=== PATIENT | female | born 2000 | race Caucasian/White ===

== ENCOUNTER 2019-05-08 07:58 | Emergency (ER) | payer OTHER ==
[~2019-05-08] VITALS: Ht 154.9 cm; Wt 47.6 kg
[2019-05-08] MEDS ORDERED: IBUPROFEN800 MG PO (08:06)
[2019-05-08] MEDS ORDERED: NORCO 5-325 TA1 EACH PO (08:06)
[2019-05-08] MEDS ORDERED: SPRINTEC1 EACH PO (08:06)
[2019-05-08] MEDS ORDERED: PROMETHAZINE HC25 M1 PO (09:24)
[2019-05-08] MEDS ORDERED: ONDANSETRON ODT8 MG PO (09:24)
[2019-05-08] MEDS ORDERED: KEFLEX500 MG PO (10:18)
== END 2019-05-08 10:31 | disposition home or self-care (01) ==
LOC: ED 07:58
DX: K29.00 Acute gastritis without bleeding (principal); N39.0 Urinary tract infection, site not specified; Z79.899 Other long term (current) drug therapy; Z79.891 Long term (current) use of opiate analgesic
CPT/HCPCS: 81001; 84703; 99284; A9270

== ENCOUNTER 2020-06-09 09:39 | Emergency (ER) | payer OTHER ==
[~2020-06-09] VITALS: Ht 154.9 cm; Wt 49.9 kg
[~2020-06-09 09:39] MED LIST: IBUPROFEN800 MG PO; KEFLEX500 MG PO; NORCO 5-325 TA1 EACH PO; ONDANSETRON ODT8 MG PO; PROMETHAZINE HC25 M1 PO; SPRINTEC1 EACH PO
[2020-06-09] MEDS ORDERED: ASHLYNA 0.15-01 EACH PO (09:54)
== END 2020-06-09 10:29 | disposition home or self-care (01) ==
LOC: ED 09:39
DX: S91.041A Puncture wound with foreign body, right ankle, initial encounter (principal); W22.8XXA Striking against or struck by other objects, initial encounter; J45.909 Unspecified asthma, uncomplicated; Z87.891 Personal history of nicotine dependence; Z79.899 Other long term (current) drug therapy
CPT/HCPCS: 64450; 90471; 90715; 99283-25

== ENCOUNTER 2022-01-29 15:00 | Emergency (ER) | payer OTHER ==
[~2022-01-29] VITALS: Ht 154.9 cm; Wt 57.6 kg
[~2022-01-29 15:00] MED LIST changes: +ASHLYNA 0.15-01 EACH PO
[2022-01-29] MEDS ORDERED: PENICILLIN V P500 MG PO (17:58)
== END 2022-01-29 18:03 | disposition home or self-care (01) ==
LOC: ED 15:00
DX: K08.89 Other specified disorders of teeth and supporting structures (principal); J45.909 Unspecified asthma, uncomplicated; Z87.891 Personal history of nicotine dependence
CPT/HCPCS: 99282

== ENCOUNTER 2022-11-15 02:17 | Inpatient (IN) | payer OTHER ==
[~2022-11-15] VITALS: Ht 157.5 cm; Wt 73.9 kg
[~2022-11-15 02:17] MED LIST changes: +PENICILLIN V P500 MG PO
[2022-11-15 04:29] VITALS: BP 131/80
--- NOTE | 2022-11-15 04:52 | PR ---
[facility] [address] [place], [place] [address] Signed Progress Notes IP Datetime Report Generated by CPN: 11/15/2022 04:52 PROGRESS NOTES: [id number] Impression: Normal Progression of Labor; Reassuring Heart Rate Procedures: Artificial ROM; Sterile Vag Exam Plan: Continue Present Management; Anticipate Vaginal Delivery Informed Consent Obtain: Vaginal Delivery VITAL SIGNS: [id number] Vital Signs: Reviewed; Within Normal Limits EXAM: [id number] Dilatation: 7.0 Effacement: 95 Station: -2 Contractions: q2-3 min MEMBRANES: [id number] Amniotic Fluid Color: Clear Comments: Pt seen and examined. Doing well. Comfortable w/ epidural. Large bulging bag of back noted and AROM performed w/out difficulty for large amount of clear amniotic fluid. Pt and baby tolerated well. Pt now complete. Will prepare for delivery FETUS A: [id number] FHR Baseline: 120 Variability: Moderate 6-25bpm Accelerations: 15X15 Decelerations: None FHR Category: Category I Presentation: Vertex Comments on Fetus A: No evidence of acidemia FETUS B: [id number] Signing Physician: Juan Hays DO Copies: ~ *Electronically Signed* 11/15/22 045 JUAN HAYS (CITLALI) DO PATIENT NAME: DANIELA BOCANEGRA PROGRESS NOTE DATE OF : 99 PHYSICIAN: JUAN HAYS) DO RPT #: [id number] REPORT IS CONFIDENTIAL AND NOT TO BE RELEASED WITHOUT AUTHORIZATION
--- NOTE | 2022-11-16 09:59 | PR ---
[facility] [address] [place], [place] [address] Signed PP Progress Notes Datetime Report Generated by CPN: 11/16/2022 09:58 SUBJECTIVE: [id number] Pain: Within Normal Limits Nausea/Vomiting: Denies Flatus: Yes Bowel Movement: Yes Vital Signs: [id number] Vital Signs: Reviewed EXAM: Ongoing Cardiovascular: Normal Respiratory: Normal Abdomen/Uterus: Normal Lochia: Normal CVA Tenderness: Normal Extremities: Normal Incision: Not Applicable Progress: Normal Exam Comments: Fundus firm U-2 nontender IMPRESSION/PLAN/PROCEDURES: [id number] Impression: Normal Progression Plan: Discharge Progress Notes: Pt seen and examined. Doing well. Ambulating, voiding and tolerating full diet. Pain and lochia minimal. well. No fevers/chills. Mildly elevated BPs noted . No DRISCOLL, RUQ pain, or visual changes. Desires d/c home. Will return in 2 days for BP check. Reviewed instructions in detail. Discuss s/sx preE and indications for urgent reevaluation. Signing Physician: Juan Barnhart DO Copies: ~ *Electronically Signed* 11/16/22 0958 JUAN BARNHART (CITLALI) DO PATIENT NAME: DANIELA BOCANEGRA PROGRESS NOTE DATE OF : 99 PHYSICIAN: JUAN BARNHART (JD) DO RPT #: [id number] REPORT IS CONFIDENTIAL AND NOT TO BE RELEASED WITHOUT AUTHORIZATION
== END 2022-11-16 12:15 | disposition home or self-care (01) | DRG 807 ==
LOC: FBCO 02:17 → FBC 02:41
PROVIDERS: ADMIT Obstetrics & Gynecology; ATTEND Obstetrics & Gynecology
PROC: 10E0XZZ Delivery of Products of Conception, External Approach (ICD-10-PCS; principal; 2022-11-15)
PROC: 0KQM0ZZ Repair Perineum Muscle, Open Approach (ICD-10-PCS; 2022-11-15)
PROC: 10907ZC Drainage of Amniotic Fluid, Therapeutic from Products of Conception, Via Natural or Artificial Opening (ICD-10-PCS; 2022-11-15)
PROC: 00HU33Z Insertion of Infusion Device into Spinal Canal, Percutaneous Approach (ICD-10-PCS; 2022-11-15)
PROC: 3E0R3BZ Introduction of Anesthetic Agent into Spinal Canal, Percutaneous Approach (ICD-10-PCS; 2022-11-15)
DX: O99.334 Smoking (tobacco) complicating childbirth (principal); Z37.0 Single live birth; Z67.10 Type A blood, Rh positive; O70.1 Second degree perineal laceration during delivery; F17.200 Nicotine dependence, unspecified, uncomplicated; Z79.899 Other long term (current) drug therapy; Z3A.37 37 weeks gestation of pregnancy
CPT/HCPCS: 36415; 85027; 86850; 86900; 86901; A9270; J2590; J3010